=== PATIENT | male | born 1995 | race Hispanic/Latino ===

== ENCOUNTER 2023-07-26 10:54 | Emergency (ER) | payer OTHER ==
[~2023-07-26] VITALS: Ht 175.3 cm; Wt 83.5 kg
[2023-07-26] MEDS ORDERED: ACETAMINOPHEN 500 MG TABLET PO ONE (11:30)
[2023-07-26] MEDS ORDERED: 0.9%NACL 1000ML 1,000 ML IV ONE (11:30)
[2023-07-26 12:03] LABS: RAPID GROUP A STREP negative (NEGATIVE)
[2023-07-26 12:07] LABS: SARS-CoV-2, RNA, NAAT NEGATIVE SARS CoV-2 (NEGATIVE)
[2023-07-26 12:12] LABS: INFLUENZA TYPE A Negative For Type A (NEGATIVE); INFLUENZA TYPE B Negative For Type B (NEGATIVE)
[2023-07-26] MEDS ORDERED: AMOX-427 PO (12:47)
[2023-07-26 13:10] VITALS: TEMP 102
[2023-07-26] MEDS ORDERED: IBUPROFEN 800 MG TAB PO ONE (13:30)
[2023-07-26 13:57] VITALS: BP 120/59; PULSE 87; RESP 17; O2SAT 97
== END 2023-07-26 14:07 | disposition home or self-care (01) ==
LOC: EDH 10:54
DX: J01.90 Acute sinusitis, unspecified (principal); Z20.822 Contact with and (suspected) exposure to COVID-19
CPT/HCPCS: 99283; 96360; 87635; 87880; 87804 ×2; C9803